=== PATIENT | female | born 1975 | race Caucasian/White ===

== ENCOUNTER 2017-10-20 16:47 | Emergency (ER) | payer OTHER ==
[2017-10-20 17:50] VITALS: BP 127/74
== END 2017-10-20 17:50 | disposition home or self-care (01) ==
LOC: ED 16:47
DX: M54.2 Cervicalgia (principal)

== ENCOUNTER 2018-10-31 02:14 | Emergency (ER) | payer OTHER ==
[~2018-10-31] VITALS: Ht 160 cm; Wt 102.5 kg
[2018-10-31 02:32] VITALS: Ht 160 cm; Wt 102.5 kg
[2018-10-31 03:13] LABS: BASOPHIL % 0.2 % (0-2); PLATELET COUNT 216 x10^3mcL (130-400); RED CELL DISTRIBUTION WIDTH 15.3 % (11.5-14.5)
[2018-10-31 03:33] LABS: CALCIUM 8.5 mg/dL (8.5-10.1); CARBON DIOXIDE 25.9 mmol/L (21-32); CHLORIDE SERUM 103 mmol/L (98-107); CREATININE SERUM 0.7 mg/dL (0.6-1.0); GFR1 > 60 mL/min; GLUCOSE SERUM 178 mg/dL (74-106); POTASSIUM SERUM 3.9 mmol/L (3.5-5.1); SODIUM SERUM 138 mmol/L (136-145)
[2018-10-31 03:42] LABS: ALBUMIN 3.4 g/dL (3.4-5.0); ALKALINE PHOSPHATASE 75 U/L (46-116); ALT/SGPT 76 U/L (14-59); AST/SGOT 23 U/L (15-37); BILIRUBIN TOTAL 0.33 mg/dL (0.20-1.00); TOTAL PROTEIN, SERUM 6.8 g/dL (6.4-8.2)
[2018-10-31 05:01] VITALS: BP 127/89
== END 2018-10-31 05:01 | disposition home or self-care (01) ==
LOC: ED 02:14
PROVIDERS: Emergency Medicine
DX: M94.0 Chondrocostal junction syndrome [Tietze] (principal); E78.5 Hyperlipidemia, unspecified; E03.9 Hypothyroidism, unspecified; E11.9 Type 2 diabetes mellitus without complications
CPT/HCPCS: 36415

== ENCOUNTER 2020-06-22 11:18 | Emergency (ER) | payer OTHER ==
[~2020-06-22] VITALS: Ht 160 cm; Wt 91.6 kg
[2020-06-22 11:30] VITALS: Ht 160 cm; Wt 91.6 kg
[2020-06-22 13:37] VITALS: BP 115/78
== END 2020-06-22 13:37 | disposition home or self-care (01) ==
LOC: ED 11:18
DX: L50.9 Urticaria, unspecified (principal); E11.9 Type 2 diabetes mellitus without complications; Z88.6 Allergy status to analgesic agent; Z98.890 Other specified postprocedural states
CPT/HCPCS: J2930

== ENCOUNTER 2020-10-10 21:02 | Emergency (ER) | payer OTHER ==
[~2020-10-10] VITALS: Ht 160 cm; Wt 88.0 kg
[2020-10-10 21:35] VITALS: Ht 160 cm; Wt 88.0 kg
[2020-10-10 23:36] LABS: BASOPHIL % 0.1 % (0.2-1.3); PLATELET COUNT 289 x10^3mcL (179-408)
[2020-10-10 23:44] LABS: CALCIUM 9.8 mg/dL (8.5-10.1); CARBON DIOXIDE 17.8 mmol/L (21-32); CHLORIDE SERUM 98 mmol/L (98-107); CREATININE SERUM 0.8 mg/dL (0.6-1.0); GFR1 > 60 mL/min; GLUCOSE SERUM 174 mg/dL (74-106); POTASSIUM SERUM 4.4 mmol/L (3.5-5.1); SODIUM SERUM 139 mmol/L (136-145)
[2020-10-10 23:48] LABS: ALBUMIN 4.8 g/dL (3.4-5.0); ALKALINE PHOSPHATASE 69 U/L (46-116); ALT/SGPT 53 U/L (14-59); AST/SGOT 18 U/L (15-37); BILIRUBIN TOTAL 0.9 mg/dL (0.20-1.00); RED CELL DISTRIBUTION WIDTH 15.5 % (12.3-17.7)
[2020-10-10 23:50] LABS: TOTAL PROTEIN, SERUM 9.4 g/dL (6.4-8.2)
[2020-10-11] MEDS ORDERED: ONDANSETRON4 M3 PO (03:04)
[2020-10-11 03:20] VITALS: BP 109/68
== END 2020-10-11 03:24 | disposition home or self-care (01) ==
LOC: ED 21:02
DX: R53.81 Other malaise (principal); R51.9 Headache, unspecified; R11.2 Nausea with vomiting, unspecified; T38.3X5A Adverse effect of insulin and oral hypoglycemic [antidiabetic] drugs, initial encounter; E11.9 Type 2 diabetes mellitus without complications; E78.5 Hyperlipidemia, unspecified; Y92.89 Other specified places as the place of occurrence of the external cause; Z88.6 Allergy status to analgesic agent
CPT/HCPCS: 82962; J1200; J2765; J3490; J7030